=== PATIENT | female | born 1945 | race Caucasian/White ===

== ENCOUNTER 2020-01-13 13:03 | Outpatient (CLI) | payer MEDICARE, OTHER ==
[2020-01-14 14:21] LABS: SARS-CoV-2 MS2 Positive; SARS-CoV-2 N Gene Negative; SARS-CoV-2 S Gene Negative; SARS-CoV-2 by NAA Not Detected (NotDetected); SARS-CoV-2 orf1ab Negative
== END 2020-01-13 13:04 | disposition home or self-care (01) ==
LOC: LABBT 13:03
PROVIDERS: ATTEND Internal Medicine Cardiovascular Disease
DX: Z01.812 Encounter for preprocedural laboratory examination (principal); Z11.59 Encounter for screening for other viral diseases; I48.91 Unspecified atrial fibrillation
CPT/HCPCS: 87635; U0003

== ENCOUNTER 2021-03-09 11:58 | Outpatient (CLI) | payer MEDICARE | END 2021-03-09 11:59 | disposition home or self-care (01) | LOC: BICRAD 11:58 | PROVIDERS: ATTEND Specialist | DX: R10.9 Unspecified abdominal pain (principal); Z87.19 Personal history of other diseases of the digestive system | CPT/HCPCS: 36415; 74019; 80048; 85025 ==

== ENCOUNTER 2021-04-01 08:36 | Outpatient (CLI) | payer MEDICARE | END 2021-04-01 08:37 | disposition home or self-care (01) | LOC: BICCT 08:36 | PROVIDERS: ATTEND Specialist | DX: R10.9 Unspecified abdominal pain (principal); K52.9 Noninfective gastroenteritis and colitis, unspecified; K76.0 Fatty (change of) liver, not elsewhere classified; N26.1 Atrophy of kidney (terminal); S30.1XXA Contusion of abdominal wall, initial encounter | CPT/HCPCS: 74177 ==

== ENCOUNTER 2021-04-01 10:46 | Inpatient (IN) | payer MEDICARE ==
[2021-04-01] MEDS ORDERED: Ondansetron PF 4 MG/2 ML Vial IVP PRN (12:32)
[2021-04-01] MEDS ORDERED: Lactated Ringer's 1,000 ML IV SCH ×2 (12:45→13:00)
[2021-04-01] MEDS ORDERED: Gabapentin 300 MG CAP PO SCH (12:45)
[2021-04-01 13:51] VITALS: BMI 24.3
[2021-04-01 14:54] LABS: #Lymphocytes 1.1 thou/uL (1.20-3.40); #Monocytes 0.6 thou/uL (0.11-0.59); #Neutrophils 4.1 thou/uL (1.40-6.50); %Basophils 0.5 % (0.0-1.0); %Eosinophils 0.6 % (0.0-10.0); %Lymphocytes 18.6 % (21.0-51.0); %Monocytes 10.1 % (0.0-10.0); %Neutrophils 70.3 % (42.0-75.0); Hemoglobin 12.1 g/dL (12.0-16.0); Mean Corpuscular HGB CONC 34.3 g/dL (32.0-36.0); Mean Corpuscular Hemoglobin 34.5 pg (27.0-31.0); Mean Platelet Volume 6.7 fL (7.4-10.4); Platelet Count 348 thou/uL (130-400); RBC Distribution Width 15.6 % (11.5-14.5); Red Blood Cell (RBC) Count 3.49 mill/uL (4.20-5.40); White Blood Cell (WBC) Count 5.8 thou/uL (4.8-10.8)
[2021-04-01 16:35] LABS: ALT (SGPT) 8 U/L (8-55); AST (SGOT) 28 U/L (5-34); Albumin 2.8 g/dL (3.4-4.8); Alkaline Phosphatase 66 U/L (40-110); Anion Gap 20 mmol/L (10-20); BUN (Urea Nitrogen) 27 mg/dL (9.8-20.1); Bilirubin, Total 0.4 mg/dL (0.2-1.2); Calc. Creatinine Clearance 29 mL/min (70-130); Carbon Dioxide 22 mmol/L (23-31); Chloride 100 mmol/L (98-107); Globulin 3.3 g/dL (2.4-3.5); Glucose 95 mg/dL (83-110); Potassium 4.9 mmol/L (3.5-5.1); Protein, Total 6.1 g/dL (5.8-8.1); Sodium 137 mmol/L (136-145)
[2021-04-01 17:39] LABS: SARS-CoV-2 PCR by NAA Not Detected (NotDetected)
[2021-04-01] MEDS: Sodium Chloride 0.45% 1,000 ML IV SCH (21:27)
[2021-04-01] MEDS: Vancomycin HCl 25 MG/ML Oral PO SCH (21:28)
[2021-04-01] MEDS: Dronedarone HCl 400 MG TAB PO SCH (21:28)
[2021-04-01] MEDS: Acetaminophen 500 MG TAB PO SCH ×2 (21:28→21:31)
[2021-04-02] MEDS: Vancomycin HCl 25 MG/ML Oral PO SCH ×3 (03:40→14:38)
[2021-04-02] MEDS: Acetaminophen 500 MG TAB PO SCH ×2 (06:07→13:40)
[2021-04-02 08:20] LABS: Anion Gap 16 mmol/L (10-20); BUN (Urea Nitrogen) 20 mg/dL (9.8-20.1); Calc. Creatinine Clearance 38 mL/min (70-130); Calcium 6.9 mg/dL (7.8-10.44); Carbon Dioxide 20 mmol/L (23-31); Chloride 102 mmol/L (98-107); Glucose 90 mg/dL (83-110); Sodium 135 mmol/L (136-145)
[2021-04-02 08:27] LABS: Potassium 2.6 mmol/L (3.5-5.1)
[2021-04-02] MEDS ORDERED: Magnesium Oxide 250 MG TAB PO SCH (09:00)
[2021-04-02] MEDS ORDERED: Exemestane 25 MG TAB PO SCH (09:00)
[2021-04-02] MEDS ORDERED: Gabapentin 300 MG CAP PO SCH ×2 (09:00)
[2021-04-02] MEDS ORDERED: Cholestyramine/Aspartame 4 gm Packet PO SCH (09:00)
[2021-04-02] MEDS: Dronedarone HCl 400 MG TAB PO SCH (09:35)
[2021-04-02] MEDS: Potassium Chloride 40 MEQ in Sodium Chloride 0.9% 250 ML 250 ML IVPB SCH ×2 (10:13→16:24)
[2021-04-02] MEDS: Sodium Chloride 0.45% 1,000 ML IV SCH ×2 (10:14→16:34)
[2021-04-02] MEDS ORDERED: Ondansetron ODT 8 MG TAB SL PRN (10:22)
[2021-04-02 11:57] VITALS: TEMP 97.5
[2021-04-02] MEDS: Potassium Chloride 20 MEQ TAB PO SCH ×2 (14:38→16:28)
[2021-04-02] MEDS ORDERED: Potassium Chloride 20 MEQ TAB PO SCH (16:00)
[2021-04-02 16:25] VITALS: BP 118/75
[2021-04-02] MEDS ORDERED: Apixaban 5 MG TAB PO SCH (21:00)
[2021-04-03] MEDS ORDERED: Potassium Chloride 20 MEQ TAB PO SCH (08:00)
== END 2021-04-02 17:15 | disposition home or self-care (01) | DRG 372 ==
LOC: SJJU 11:28
PROVIDERS: ADMIT Specialist; ATTEND Specialist
DX: A04.72 Enterocolitis due to Clostridium difficile, not specified as recurrent (principal); N17.9 Acute kidney failure, unspecified; E86.0 Dehydration; I48.91 Unspecified atrial fibrillation; M19.90 Unspecified osteoarthritis, unspecified site; H40.9 Unspecified glaucoma; E87.5 Hyperkalemia; D64.9 Anemia, unspecified; Z20.822 Contact with and (suspected) exposure to COVID-19; N18.30 Chronic kidney disease, stage 3 unspecified; I12.9 Hypertensive chronic kidney disease with stage 1 through stage 4 chronic kidney disease, or unspecified chronic kidney disease; Z79.01 Long term (current) use of anticoagulants; Z90.49 Acquired absence of other specified parts of digestive tract; Z85.3 Personal history of malignant neoplasm of breast; Z85.038 Personal history of other malignant neoplasm of large intestine; Z92.3 Personal history of irradiation; Z92.21 Personal history of antineoplastic chemotherapy; Z90.710 Acquired absence of both cervix and uterus; Z98.890 Other specified postprocedural states
CPT/HCPCS: 36415; 71046; 74177; 80048; 80053; 82533; 83630; 84443; 85025; 87045; 87046; 87077; 87324; 87427; 87449; 87493; J2405; J3480; J7050; J7120; Q9967; U0003; U0005

== ENCOUNTER 2021-04-12 13:02 | Inpatient (IN) | payer MEDICARE ==
[2021-04-12 13:41] LABS: #Basophils 0.1 thou/uL (0.0-0.2); #Eosinphils 0.1 thou/uL (0.0-0.7); #Lymphocytes 1.7 thou/uL (1.20-3.40); #Monocytes 0.6 thou/uL (0.11-0.59); #Neutrophils 5.1 thou/uL (1.40-6.50); %Lymphocytes 22.5 % (21.0-51.0); %Monocytes 7.5 % (0.0-10.0); Mean Corpuscular HGB CONC 32.9 g/dL (32.0-36.0); Mean Corpuscular Hemoglobin 32.8 pg (27.0-31.0); Mean Corpuscular Volume 99.8 fL (78.0-98.0); Mean Platelet Volume 6.4 fL (7.4-10.4); Platelet Count 592 thou/uL (130-400); RBC Distribution Width 15.7 % (11.5-14.5); Red Blood Cell (RBC) Count 4.27 mill/uL (4.20-5.40); White Blood Cell (WBC) Count 7.5 thou/uL (4.8-10.8)
[2021-04-12 14:07] LABS: ALT (SGPT) 11 U/L (8-55); AST (SGOT) 16 U/L (5-34); Albumin 3.4 g/dL (3.4-4.8); Alkaline Phosphatase 81 U/L (40-110); Anion Gap 18 mmol/L (10-20); BUN (Urea Nitrogen) 25 mg/dL (9.8-20.1); Bilirubin, Total 0.5 mg/dL (0.2-1.2); Calc. Creatinine Clearance 0 mL/min (70-130); Calcium 7.4 mg/dL (7.8-10.44); Carbon Dioxide 22 mmol/L (23-31); Chloride 101 mmol/L (98-107); Globulin 3.7 g/dL (2.4-3.5); Glucose 103 mg/dL (83-110); Lipase 25 U/L (8-78); Protein, Total 7.1 g/dL (5.8-8.1); Sodium 138 mmol/L (136-145)
[2021-04-12 14:18] LABS: Potassium 2.6 mmol/L (3.5-5.1)
[2021-04-12] MEDS ORDERED: Magnesium 2 GM/50 ML BAG (IN WATER) ONE ×3 (14:51→22:18)
[2021-04-12 15:05] LABS: Magnesium 0.7 mg/dL (1.6-2.6)
[2021-04-12] MEDS ORDERED: Potassium Chloride 40 MEQ in Sodium Chloride 0.9% 250 ML 250 ML IVPB SCH (15:30)
[2021-04-12] MEDS ORDERED: Potassium Chloride 20 MEQ TAB ONE ×2 (15:40→22:41)
[2021-04-12] MEDS ORDERED: Electrolyte Replacement Protocol 1 EACH FS SCH (16:00)
[2021-04-12] MEDS ORDERED: Magnesium Sulfate 4 GM in Sodium Chloride 0.9% 250 ML 250 ML IVPB SCH ×2 (16:15→22:45)
[2021-04-12 16:28] LABS: Phosphorus 3.6 mg/dL (2.3-4.7)
[2021-04-12 16:38] LABS: Lactic Acid 2.5 mmol/L (0.5-2.2)
[2021-04-12] MEDS ORDERED: NS 0.9% w/ 20 MEQ KCL 1,000 ML ONE (17:46)
[2021-04-12] MEDS ORDERED: Calcium Gluconate 4.6 MEQ in Sodium Chloride 0.9% 100 ML IVPB SCH (20:00)
[2021-04-12 21:54] LABS: Potassium 3.3 mmol/L (3.5-5.1)
[2021-04-12 22:00] LABS: Magnesium 0.9 mg/dL (1.6-2.6)
[2021-04-12] MEDS ORDERED: Potassium Chloride 20 MEQ TAB PO SCH (22:30)
[2021-04-12] MEDS ORDERED: Ondansetron PF 4 MG/2 ML Vial ONE (22:41)
[2021-04-13] MEDS: Ondansetron PF 4 MG/2 ML Vial IVP PRN ×2 (01:58→05:14)
[2021-04-13 02:31] VITALS: BMI 24.0
[2021-04-13] MEDS: Fidaxomicin 200 MG TAB PO SCH ×3 (03:31→21:02)
[2021-04-13] MEDS: Apixaban 5 MG TAB PO SCH ×3 (03:33→21:02)
[2021-04-13] MEDS: Dronedarone HCl 400 MG TAB PO SCH ×3 (03:35→21:02)
[2021-04-13] MEDS: Cyanocobalamin (Vitamin B-12) 1,000 MCG TAB PO SCH ×2 (03:53→21:02)
[2021-04-13] MEDS: Folic Acid 1 MG TAB PO SCH ×2 (03:53→21:02)
[2021-04-13 04:23] LABS: SARS-CoV-2 NAA Rapid Test Not Detected (NotDetected)
[2021-04-13 05:05] LABS: Chloride 109 mmol/L (98-107); Potassium 3.7 mmol/L (3.5-5.1); Sodium 138 mmol/L (136-145)
[2021-04-13 05:06] LABS: Calcium 7.4 mg/dL (7.8-10.44); Glucose 99 mg/dL (83-110)
[2021-04-13 05:08] LABS: Anion Gap 17 mmol/L (10-20); Carbon Dioxide 16 mmol/L (23-31)
[2021-04-13 05:10] LABS: Calc. Creatinine Clearance 30 mL/min (70-130)
[2021-04-13 05:11] LABS: BUN (Urea Nitrogen) 24 mg/dL (9.8-20.1)
[2021-04-13 05:12] LABS: Magnesium 2.3 mg/dL (1.6-2.6)
[2021-04-13 05:13] LABS: Lactic Acid 1.4 mmol/L (0.5-2.2)
[2021-04-13] MEDS: NS 0.9% w/ 20 MEQ KCL 1,000 ML/1,000 ML BAG IV SCH ×3 (05:13→13:36)
[2021-04-13] MEDS: metroNIDAZOLE 500 MG in Premix Bag 1 BAG IVPB SCH ×3 (05:14→13:37)
[2021-04-13] MEDS: Vancomycin HCl 25 MG/ML Oral PO SCH ×4 (05:14→17:57)
[2021-04-13 05:21] LABS: Phosphorus 2.8 mg/dL (2.3-4.7)
[2021-04-13] MEDS: Furosemide 20 MG TAB PO SCH (08:52)
[2021-04-13] MEDS: Magnesium Oxide 400 MG TAB PO SCH ×3 (08:52→21:02)
[2021-04-13] MEDS: Gabapentin 300 MG CAP PO SCH (08:53)
[2021-04-13] MEDS: Multivit, Therapeutic 1 TAB PO SCH (08:53)
[2021-04-13] MEDS ORDERED: Acetaminophen 325 MG TAB PO PRN (23:36)
[2021-04-13] MEDS ORDERED: HYDROcodone/Acetaminophen 5/325 mg Tablet PO PRN (23:37)
[2021-04-14] MEDS: NS 0.9% w/ 20 MEQ KCL 1,000 ML/1,000 ML BAG IV SCH ×3 (03:26→09:49)
[2021-04-14] MEDS: metroNIDAZOLE 500 MG in Premix Bag 1 BAG IVPB SCH (03:27)
[2021-04-14] MEDS: Dronedarone HCl 400 MG TAB PO SCH ×2 (08:30→20:48)
[2021-04-14] MEDS: Gabapentin 300 MG CAP PO SCH (08:30)
[2021-04-14] MEDS: Multivit, Therapeutic 1 TAB PO SCH (08:30)
[2021-04-14] MEDS: Fidaxomicin 200 MG TAB PO SCH ×2 (08:31→20:50)
[2021-04-14] MEDS: Apixaban 5 MG TAB PO SCH ×2 (08:31→20:46)
[2021-04-14] MEDS: Magnesium Oxide 400 MG TAB PO SCH ×3 (08:31→20:48)
[2021-04-14] MEDS: Furosemide 20 MG TAB PO SCH (08:31)
[2021-04-14] MEDS ORDERED: Calcium Carbonate 500 MG ChewTAB PO PRN (09:05)
[2021-04-14] MEDS ORDERED: Sodium Chloride 0.65% Nasal 44 ML BOT EA NARE PRN (09:05)
[2021-04-14] MEDS ORDERED: Artificial Tear Sol 15 ML BOT EA EYE PRN (09:05)
[2021-04-14] MEDS ORDERED: GUAIFENESIN SF SOLN 200 MG/10 ML UDCUP PO PRN (09:05)
[2021-04-14] MEDS ORDERED: Hydrocerin (Eucerin) Cream 120 gm Jar TOP PRN (09:05)
[2021-04-14] MEDS ORDERED: Loratadine 10 MG TAB PO PRN (09:05)
[2021-04-14] MEDS ORDERED: Cepastat Lozenges 1 LOZ PO PRN (09:05)
[2021-04-14] MEDS ORDERED: cloNIDine 0.1 MG TAB PO PRN (09:05)
[2021-04-14] MEDS: Saccharomyces boulardii 250 MG CAP PO SCH (20:47)
[2021-04-14] MEDS: Folic Acid 1 MG TAB PO SCH (20:47)
[2021-04-14] MEDS: Cyanocobalamin (Vitamin B-12) 1,000 MCG TAB PO SCH (20:47)
[2021-04-14] MEDS: Diphenoxylate HCl/Atropine Tablet PO PRN (22:13)
[2021-04-14] MEDS: Zolpidem Tartrate 5 MG TAB PO PRN (22:21)
[2021-04-15 06:34] LABS: #Eosinphils 0.2 thou/uL (0.0-0.7); #Lymphocytes 1.8 thou/uL (1.20-3.40); #Monocytes 0.5 thou/uL (0.11-0.59); #Neutrophils 3.6 thou/uL (1.40-6.50); %Basophils 0.5 % (0.0-1.0); %Eosinophils 2.7 % (0.0-10.0); %Lymphocytes 28.7 % (21.0-51.0); %Monocytes 8.9 % (0.0-10.0); %Neutrophils 59.3 % (42.0-75.0); Hemoglobin 11.1 g/dL (12.0-16.0); Mean Corpuscular HGB CONC 32.3 g/dL (32.0-36.0); Mean Platelet Volume 6.4 fL (7.4-10.4); Platelet Count 397 thou/uL (130-400); RBC Distribution Width 15.5 % (11.5-14.5); Red Blood Cell (RBC) Count 3.36 mill/uL (4.20-5.40); White Blood Cell (WBC) Count 6.1 thou/uL (4.8-10.8)
[2021-04-15 06:58] LABS: ALT (SGPT) 13 U/L (8-55); AST (SGOT) 18 U/L (5-34); Albumin 2.6 g/dL (3.4-4.8); Alkaline Phosphatase 63 U/L (40-110); Anion Gap 10 mmol/L (10-20); BUN (Urea Nitrogen) 12 mg/dL (9.8-20.1); Bilirubin, Total 0.5 mg/dL (0.2-1.2); Calc. Creatinine Clearance 44 mL/min (70-130); Calcium 8.2 mg/dL (7.8-10.44); Carbon Dioxide 23 mmol/L (23-31); Chloride 108 mmol/L (98-107); Globulin 2.2 g/dL (2.4-3.5); Glucose 85 mg/dL (83-110); Magnesium 1.7 mg/dL (1.6-2.6); Phosphorus 2.9 mg/dL (2.3-4.7); Protein, Total 4.8 g/dL (5.8-8.1); Sodium 138 mmol/L (136-145)
[2021-04-15] MEDS ORDERED: Potassium Chloride 20 MEQ TAB PO SCH (07:15)
[2021-04-15] MEDS ORDERED: Magnesium 2 GM/50 ML 2 GM in Premix Bag 1 BAG IVPB SCH (08:00)
[2021-04-15] MEDS: Dronedarone HCl 400 MG TAB PO SCH ×2 (08:56→21:07)
[2021-04-15] MEDS: Fidaxomicin 200 MG TAB PO SCH ×2 (08:57→21:07)
[2021-04-15] MEDS: Exemestane 25 MG TAB PO SCH (08:58)
[2021-04-15] MEDS: Saccharomyces boulardii 250 MG CAP PO SCH ×2 (08:59→21:08)
[2021-04-15] MEDS: Gabapentin 300 MG CAP PO SCH (08:59)
[2021-04-15] MEDS: Magnesium Oxide 400 MG TAB PO SCH ×3 (09:00→21:08)
[2021-04-15] MEDS ORDERED: Allopurinol 100 MG TAB PO SCH (09:00)
[2021-04-15] MEDS: Diphenoxylate HCl/Atropine Tablet PO PRN (09:00)
[2021-04-15] MEDS ORDERED: Non-Formulary Item 1 EACH (Cholecalciferol (Vitamin D3) [Vitamin D3] 50 MCG Capsule) PO SCH (09:00)
[2021-04-15] MEDS: Multivit, Therapeutic 1 TAB PO SCH (09:00)
[2021-04-15] MEDS ORDERED: Exemestane 25 MG TAB PO SCH (09:00)
[2021-04-15] MEDS: Cholecalciferol 1,000 UNITS (25 MCG) TAB PO SCH (09:00)
[2021-04-15] MEDS: Apixaban 5 MG TAB PO SCH ×2 (09:01→21:06)
[2021-04-15] MEDS: Allopurinol 100 MG TAB PO SCH (09:01)
[2021-04-15] MEDS: Furosemide 20 MG TAB PO SCH (09:02)
[2021-04-15] MEDS: Cholestyramine/Aspartame 4 gm Packet PO SCH ×2 (11:00→22:21)
[2021-04-15] MEDS ORDERED: Ondansetron ODT 4 MG TAB PO PRN (12:11)
[2021-04-15] MEDS: Cyanocobalamin (Vitamin B-12) 1,000 MCG TAB PO SCH (21:07)
[2021-04-15] MEDS: Folic Acid 1 MG TAB PO SCH (21:08)
[2021-04-15] MEDS: Zolpidem Tartrate 5 MG TAB PO PRN (21:10)
[2021-04-16 05:08] VITALS: BP 112/72
[2021-04-16 06:30] LABS: Anion Gap 10 mmol/L (10-20); BUN (Urea Nitrogen) 12 mg/dL (9.8-20.1); Calc. Creatinine Clearance 42 mL/min (70-130); Calcium 8.4 mg/dL (7.8-10.44); Carbon Dioxide 21 mmol/L (23-31); Chloride 109 mmol/L (98-107); Glucose 85 mg/dL (83-110); Potassium 3.4 mmol/L (3.5-5.1); Sodium 137 mmol/L (136-145)
[2021-04-16] MEDS ORDERED: Potassium Chloride 20 MEQ TAB PO SCH (07:00)
[2021-04-16] MEDS ORDERED: FLU VACC QS2021-22(65YR UP)/PF 240 MCG/0.7 ML SYRINGE IM ONE (09:00)
[2021-04-16 09:02] VITALS: TEMP 98.3
[2021-04-16] MEDS: Cholestyramine/Aspartame 4 gm Packet PO SCH (09:02)
[2021-04-16] MEDS: Multivit, Therapeutic 1 TAB PO SCH (09:06)
[2021-04-16] MEDS: Apixaban 5 MG TAB PO SCH (09:06)
[2021-04-16] MEDS: Gabapentin 300 MG CAP PO SCH (09:06)
[2021-04-16] MEDS: Magnesium Oxide 400 MG TAB PO SCH (09:07)
[2021-04-16] MEDS: Exemestane 25 MG TAB PO SCH (09:07)
[2021-04-16] MEDS: Dronedarone HCl 400 MG TAB PO SCH (09:07)
[2021-04-16] MEDS: Cholecalciferol 1,000 UNITS (25 MCG) TAB PO SCH (09:07)
[2021-04-16] MEDS: Allopurinol 100 MG TAB PO SCH (09:07)
[2021-04-16] MEDS: Saccharomyces boulardii 250 MG CAP PO SCH (09:07)
[2021-04-16] MEDS: Fidaxomicin 200 MG TAB PO SCH (09:08)
== END 2021-04-16 11:22 | disposition home or self-care (01) | DRG 372 ==
LOC: ERS 13:02 → ERHOLD 16:35 → 2SE 04-13 04:35 → T4-B 04-14 12:04
PROVIDERS: ADMIT Internal Medicine; ATTEND Internal Medicine
DX: A04.72 Enterocolitis due to Clostridium difficile, not specified as recurrent (principal); N17.9 Acute kidney failure, unspecified; N18.4 Chronic kidney disease, stage 4 (severe); I48.20 Chronic atrial fibrillation, unspecified; E87.6 Hypokalemia; I12.9 Hypertensive chronic kidney disease with stage 1 through stage 4 chronic kidney disease, or unspecified chronic kidney disease; E83.42 Hypomagnesemia; M19.90 Unspecified osteoarthritis, unspecified site; E83.51 Hypocalcemia; I34.0 Nonrheumatic mitral (valve) insufficiency; Z20.822 Contact with and (suspected) exposure to COVID-19; Z85.038 Personal history of other malignant neoplasm of large intestine; Z90.49 Acquired absence of other specified parts of digestive tract; Z79.01 Long term (current) use of anticoagulants; Z85.3 Personal history of malignant neoplasm of breast; Z90.710 Acquired absence of both cervix and uterus; Z98.890 Other specified postprocedural states
CPT/HCPCS: 36415; 74019; 74176; 80048; 80053; 83605; 83630; 83690; 83735; 84100; 85025; 87324; 87449; 90471; 90662; 93005; 94760; 96365; 96366; 96367; G0008; J0610; J2405; J3475; J3480; J3490; J7050; Q0162; U0002

== ENCOUNTER 2021-05-14 13:34 | Emergency (ER) | payer MEDICARE | END 2021-05-14 14:42 | disposition left against medical advice (07) | LOC: ERS 13:34 | DX: Z53.21 Procedure and treatment not carried out due to patient leaving prior to being seen by health care provider (principal) ==

== ENCOUNTER 2021-05-17 15:26 | Inpatient (IN) | payer MEDICARE ==
[2021-05-17] MEDS ORDERED: Sodium Chloride 0.9% 1,000 ML IV SCH (16:07)
[2021-05-17 16:43] LABS: #Eosinphils 0.2 thou/uL (0.0-0.7); #Lymphocytes 1.6 thou/uL (1.20-3.40); #Monocytes 0.5 thou/uL (0.11-0.59); #Neutrophils 4.4 thou/uL (1.40-6.50); %Basophils 0.6 % (0.0-1.0); %Eosinophils 2.3 % (0.0-10.0); %Lymphocytes 24.2 % (21.0-51.0); %Monocytes 7.1 % (0.0-10.0); %Neutrophils 65.8 % (42.0-75.0); Hemoglobin 13.3 g/dL (12.0-16.0); Mean Corpuscular HGB CONC 33.7 g/dL (32.0-36.0); Mean Platelet Volume 6.4 fL (7.4-10.4); Platelet Count 488 thou/uL (130-400); RBC Distribution Width 14.8 % (11.5-14.5); Red Blood Cell (RBC) Count 3.91 mill/uL (4.20-5.40); White Blood Cell (WBC) Count 6.7 thou/uL (4.8-10.8)
[2021-05-17 16:58] LABS: Phosphorus 2.7 mg/dL (2.3-4.7)
[2021-05-17 17:02] LABS: ALT (SGPT) 10 U/L (8-55); AST (SGOT) 15 U/L (5-34); Albumin 3.5 g/dL (3.4-4.8); Alkaline Phosphatase 85 U/L (40-110); Anion Gap 16 mmol/L (10-20); BUN (Urea Nitrogen) 27 mg/dL (9.8-20.1); Bilirubin, Total 0.4 mg/dL (0.2-1.2); Calc. Creatinine Clearance 0 mL/min (70-130); Calcium 8.1 mg/dL (7.8-10.44); Carbon Dioxide 25 mmol/L (23-31); Chloride 101 mmol/L (98-107); Glucose 99 mg/dL (83-110); Lipase 36 U/L (8-78); Magnesium 1.1 mg/dL (1.6-2.6); Protein, Total 6.5 g/dL (5.8-8.1); Sodium 139 mmol/L (136-145)
[2021-05-17 17:08] LABS: Potassium 2.9 mmol/L (3.5-5.1)
[2021-05-17] MEDS ORDERED: Potassium Chloride 20 MEQ/100 ML PREMIX BAG ONE (17:18)
[2021-05-17] MEDS ORDERED: Magnesium 2 GM/50 ML BAG (IN WATER) ONE (17:18)
[2021-05-17] MEDS ORDERED: Magnesium 2 GM/50 ML 2 GM in Premix Bag 1 BAG IVPB SCH (17:30)
[2021-05-17] MEDS ORDERED: NS 0.9% w/ 20 MEQ KCL 1,000 ML IV SCH (17:30)
[2021-05-17] MEDS ORDERED: Potassium Chloride 20 MEQ TAB PO SCH (17:45)
[2021-05-17] MEDS ORDERED: NS 0.9% w/ 20 MEQ KCL 0 ML ONE (17:57)
[2021-05-17] MEDS ORDERED: Potassium Chloride 20 MEQ TAB ONE (17:57)
[2021-05-17] MEDS ORDERED: Acetaminophen 650 MG Suppository PR PRN (19:17)
[2021-05-17] MEDS ORDERED: Ondansetron ODT 4 MG TAB PO PRN (19:17)
[2021-05-17] MEDS ORDERED: Ondansetron PF 4 MG/2 ML Vial IVP PRN (19:17)
[2021-05-17] MEDS: Saccharomyces boulardii 250 MG CAP PO SCH (21:59)
[2021-05-17] MEDS: Famotidine 20 MG TAB PO SCH (21:59)
[2021-05-17] MEDS: Folic Acid 1 MG TAB PO SCH (21:59)
[2021-05-17] MEDS: Apixaban 5 MG TAB PO SCH (21:59)
[2021-05-17] MEDS: Cholestyramine/Aspartame 4 gm Packet PO SCH (21:59)
[2021-05-17] MEDS: Dronedarone HCl 400 MG TAB PO SCH (21:59)
[2021-05-17] MEDS: Lactated Ringer's 1,000 ML IV SCH (22:00)
[2021-05-17] MEDS: Cyanocobalamin (Vitamin B-12) 1,000 MCG TAB PO SCH (22:05)
[2021-05-18 01:13] LABS: Anion Gap 12 mmol/L (10-20); BUN (Urea Nitrogen) 21 mg/dL (9.8-20.1); Calc. Creatinine Clearance 35 mL/min (70-130); Calcium 7.5 mg/dL (7.8-10.44); Carbon Dioxide 21 mmol/L (23-31); Chloride 109 mmol/L (98-107); Glucose 105 mg/dL (83-110); Magnesium 1.6 mg/dL (1.6-2.6); Sodium 139 mmol/L (136-145)
[2021-05-18 05:16] LABS: Anion Gap 13 mmol/L (10-20); BUN (Urea Nitrogen) 18 mg/dL (9.8-20.1); Calc. Creatinine Clearance 39 mL/min (70-130); Calcium 7.8 mg/dL (7.8-10.44); Carbon Dioxide 17 mmol/L (23-31); Chloride 111 mmol/L (98-107); Glucose 95 mg/dL (83-110); Sodium 138 mmol/L (136-145)
[2021-05-18 05:29] LABS: Potassium 2.9 mmol/L (3.5-5.1)
[2021-05-18] MEDS: Potassium Chloride 20 MEQ in Premix Bag 1 BAG IVPB SCH ×2 (06:27→09:35)
[2021-05-18] MEDS ORDERED: Magnesium Sulfate 2 GM in Sodium Chloride 0.9% 100 ML IVPB SCH (06:30)
[2021-05-18] MEDS: Acetaminophen 325 MG TAB PO PRN ×2 (06:55→19:17)
[2021-05-18] MEDS ORDERED: Magnesium 2 GM/50 ML 2 GM in Premix Bag 1 BAG IVPB SCH (07:00)
[2021-05-18 07:03] LABS: #Basophils 0.1 thou/uL (0.0-0.2); #Eosinphils 0.2 thou/uL (0.0-0.7); #Lymphocytes 1.4 thou/uL (1.20-3.40); #Monocytes 0.5 thou/uL (0.11-0.59); #Neutrophils 3.8 thou/uL (1.40-6.50); %Eosinophils 3.5 % (0.0-10.0); %Lymphocytes 24.1 % (21.0-51.0); %Monocytes 8.9 % (0.0-10.0); %Neutrophils 62.5 % (42.0-75.0); Hemoglobin 11.5 g/dL (12.0-16.0); Mean Corpuscular HGB CONC 32.7 g/dL (32.0-36.0); Mean Corpuscular Hemoglobin 33.4 pg (27.0-31.0); Mean Platelet Volume 6.2 fL (7.4-10.4); Platelet Count 433 thou/uL (130-400); Red Blood Cell (RBC) Count 3.44 mill/uL (4.20-5.40)
[2021-05-18] MEDS ORDERED: Potassium Chloride 20 MEQ TAB PO SCH ×2 (08:30→15:00)
[2021-05-18] MEDS: Dronedarone HCl 400 MG TAB PO SCH ×2 (09:32→21:33)
[2021-05-18] MEDS: Fidaxomicin 200 MG TAB PO SCH ×2 (09:32→22:31)
[2021-05-18] MEDS: Saccharomyces boulardii 250 MG CAP PO SCH ×2 (09:32→21:33)
[2021-05-18] MEDS: Cholecalciferol 1,000 UNITS (25 MCG) TAB PO SCH (09:32)
[2021-05-18] MEDS: Exemestane 25 MG TAB PO SCH (09:33)
[2021-05-18] MEDS: Cholestyramine/Aspartame 4 gm Packet PO SCH ×2 (09:33→21:35)
[2021-05-18] MEDS: Gabapentin 300 MG CAP PO SCH (09:33)
[2021-05-18] MEDS: Lactated Ringer's 1,000 ML IV SCH (09:35)
[2021-05-18 11:08] LABS: SARS-CoV-2 PCR by NAA Not Detected (NotDetected)
[2021-05-18 13:03] LABS: Anion Gap 13 mmol/L (10-20); BUN (Urea Nitrogen) 15 mg/dL (9.8-20.1); Calc. Creatinine Clearance 42 mL/min (70-130); Carbon Dioxide 18 mmol/L (23-31); Chloride 108 mmol/L (98-107); Glucose 125 mg/dL (83-110); Potassium 3.2 mmol/L (3.5-5.1); Sodium 136 mmol/L (136-145)
[2021-05-18] MEDS ORDERED: Azithromycin 200 MG/5 ML Oral Suspension PO SCH (18:30)
[2021-05-18] MEDS: Apixaban 5 MG TAB PO SCH (21:33)
[2021-05-18] MEDS: Famotidine 20 MG TAB PO SCH (21:33)
[2021-05-18] MEDS: Folic Acid 1 MG TAB PO SCH (21:33)
[2021-05-18] MEDS: Cyanocobalamin (Vitamin B-12) 1,000 MCG TAB PO SCH (21:33)
[2021-05-19 05:16] LABS: #Eosinphils 0.2 thou/uL (0.0-0.7); #Lymphocytes 1.6 thou/uL (1.20-3.40); #Monocytes 0.4 thou/uL (0.11-0.59); #Neutrophils 3.3 thou/uL (1.40-6.50); %Basophils 0.4 % (0.0-1.0); %Eosinophils 3.5 % (0.0-10.0); %Lymphocytes 29.6 % (21.0-51.0); %Monocytes 7.1 % (0.0-10.0); %Neutrophils 59.4 % (42.0-75.0); Hemoglobin 10.6 g/dL (12.0-16.0); Mean Corpuscular HGB CONC 31.5 g/dL (32.0-36.0); Mean Corpuscular Hemoglobin 32.4 pg (27.0-31.0); Mean Platelet Volume 6.4 fL (7.4-10.4); Platelet Count 403 thou/uL (130-400); Red Blood Cell (RBC) Count 3.26 mill/uL (4.20-5.40); White Blood Cell (WBC) Count 5.5 thou/uL (4.8-10.8)
[2021-05-19 05:45] LABS: Anion Gap 11 mmol/L (10-20); BUN (Urea Nitrogen) 13 mg/dL (9.8-20.1); Calc. Creatinine Clearance 52 mL/min (70-130); Calcium 8.1 mg/dL (7.8-10.44); Carbon Dioxide 19 mmol/L (23-31); Chloride 111 mmol/L (98-107); Glucose 81 mg/dL (83-110); Magnesium 1.7 mg/dL (1.6-2.6); Potassium 3.4 mmol/L (3.5-5.1); Sodium 138 mmol/L (136-145)
[2021-05-19] MEDS: Lactated Ringer's 1,000 ML IV SCH ×2 (07:54→11:29)
[2021-05-19] MEDS: Exemestane 25 MG TAB PO SCH (09:43)
[2021-05-19] MEDS: Dronedarone HCl 400 MG TAB PO SCH ×2 (09:43→20:40)
[2021-05-19] MEDS: Fidaxomicin 200 MG TAB PO SCH ×2 (09:43→20:41)
[2021-05-19] MEDS: Gabapentin 300 MG CAP PO SCH (09:43)
[2021-05-19] MEDS: Cholecalciferol 1,000 UNITS (25 MCG) TAB PO SCH (09:44)
[2021-05-19] MEDS: Cholestyramine/Aspartame 4 gm Packet PO SCH ×2 (09:44→22:42)
[2021-05-19] MEDS: Saccharomyces boulardii 250 MG CAP PO SCH ×2 (09:44→20:41)
[2021-05-19] MEDS ORDERED: Potassium Chloride 20 MEQ TAB PO SCH (11:00)
[2021-05-19] MEDS ORDERED: Fentanyl 100 MCG/2 ML VIAL SLOW IVP SCH (13:30)
[2021-05-19] MEDS ORDERED: Azithromycin 250 MG TAB PO SCH (18:30)
[2021-05-19] MEDS: Cyanocobalamin (Vitamin B-12) 1,000 MCG TAB PO SCH (20:40)
[2021-05-19] MEDS: Famotidine 20 MG TAB PO SCH (20:41)
[2021-05-19] MEDS: Folic Acid 1 MG TAB PO SCH (20:41)
[2021-05-20] MEDS: Lactated Ringer's 1,000 ML IV SCH ×2 (01:38→15:03)
[2021-05-20 04:44] LABS: #Eosinphils 0.2 thou/uL (0.0-0.7); #Lymphocytes 1.8 thou/uL (1.20-3.40); #Monocytes 0.5 thou/uL (0.11-0.59); #Neutrophils 5.1 thou/uL (1.40-6.50); %Basophils 0.2 % (0.0-1.0); %Eosinophils 2.7 % (0.0-10.0); %Lymphocytes 23.3 % (21.0-51.0); %Neutrophils 66.8 % (42.0-75.0); Hemoglobin 11.2 g/dL (12.0-16.0); Mean Corpuscular HGB CONC 33.1 g/dL (32.0-36.0); Mean Corpuscular Hemoglobin 33.8 pg (27.0-31.0); Mean Platelet Volume 6.2 fL (7.4-10.4); Platelet Count 412 thou/uL (130-400); RBC Distribution Width 14.9 % (11.5-14.5); White Blood Cell (WBC) Count 7.6 thou/uL (4.8-10.8)
[2021-05-20 05:10] LABS: Anion Gap 11 mmol/L (10-20); BUN (Urea Nitrogen) 9 mg/dL (9.8-20.1); Calc. Creatinine Clearance 61 mL/min (70-130); Calcium 8.2 mg/dL (7.8-10.44); Carbon Dioxide 18 mmol/L (23-31); Chloride 110 mmol/L (98-107); Glucose 84 mg/dL (83-110); Potassium 3.5 mmol/L (3.5-5.1); Sodium 135 mmol/L (136-145)
[2021-05-20] MEDS: Cholecalciferol 1,000 UNITS (25 MCG) TAB PO SCH (08:45)
[2021-05-20] MEDS: Fidaxomicin 200 MG TAB PO SCH ×2 (08:46→21:43)
[2021-05-20] MEDS: Exemestane 25 MG TAB PO SCH (08:46)
[2021-05-20] MEDS: Gabapentin 300 MG CAP PO SCH (08:46)
[2021-05-20] MEDS: Dronedarone HCl 400 MG TAB PO SCH ×2 (08:46→21:42)
[2021-05-20] MEDS: Saccharomyces boulardii 250 MG CAP PO SCH ×2 (08:46→21:43)
[2021-05-20] MEDS: Cholestyramine/Aspartame 4 gm Packet PO SCH ×3 (08:46→21:46)
[2021-05-20] MEDS ORDERED: GoLYTELY 4,000 ml Bottle PO SCH (18:00)
[2021-05-20] MEDS: Cyanocobalamin (Vitamin B-12) 1,000 MCG TAB PO SCH (21:42)
[2021-05-20] MEDS: Famotidine 20 MG TAB PO SCH (21:42)
[2021-05-20] MEDS: Folic Acid 1 MG TAB PO SCH (21:43)
[2021-05-21] MEDS: Lactated Ringer's 1,000 ML IV SCH ×2 (04:20→18:36)
[2021-05-21 04:41] LABS: #Eosinphils 0.2 thou/uL (0.0-0.7); #Lymphocytes 1.5 thou/uL (1.20-3.40); #Monocytes 0.5 thou/uL (0.11-0.59); #Neutrophils 3.7 thou/uL (1.40-6.50); %Basophils 0.4 % (0.0-1.0); %Eosinophils 3.3 % (0.0-10.0); %Monocytes 7.9 % (0.0-10.0); %Neutrophils 62.4 % (42.0-75.0); Hemoglobin 11.3 g/dL (12.0-16.0); Mean Corpuscular HGB CONC 32.5 g/dL (32.0-36.0); Mean Corpuscular Hemoglobin 32.8 pg (27.0-31.0); Mean Platelet Volume 6.2 fL (7.4-10.4); Platelet Count 401 thou/uL (130-400); RBC Distribution Width 15.1 % (11.5-14.5); Red Blood Cell (RBC) Count 3.45 mill/uL (4.20-5.40); White Blood Cell (WBC) Count 5.9 thou/uL (4.8-10.8)
[2021-05-21 04:59] LABS: Anion Gap 11 mmol/L (10-20); BUN (Urea Nitrogen) 7 mg/dL (9.8-20.1); Calc. Creatinine Clearance 59 mL/min (70-130); Calcium 8.2 mg/dL (7.8-10.44); Carbon Dioxide 22 mmol/L (23-31); Chloride 107 mmol/L (98-107); Glucose 75 mg/dL (83-110); Potassium 3.3 mmol/L (3.5-5.1); Sodium 137 mmol/L (136-145)
[2021-05-21] MEDS ORDERED: Potassium Chloride 20 MEQ TAB PO SCH (07:15)
[2021-05-21] MEDS: Fidaxomicin 200 MG TAB PO SCH ×2 (09:31→21:22)
[2021-05-21] MEDS: Gabapentin 300 MG CAP PO SCH (09:31)
[2021-05-21] MEDS: Exemestane 25 MG TAB PO SCH (09:31)
[2021-05-21] MEDS: Dronedarone HCl 400 MG TAB PO SCH ×2 (09:33→21:18)
[2021-05-21] MEDS: Saccharomyces boulardii 250 MG CAP PO SCH ×2 (09:33→21:20)
[2021-05-21] MEDS: Cholecalciferol 1,000 UNITS (25 MCG) TAB PO SCH (09:33)
[2021-05-21] MEDS: Cholestyramine/Aspartame 4 gm Packet PO SCH ×2 (09:34→21:18)
[2021-05-21 13:32] VITALS: BMI 25.2
[2021-05-21] MEDS: Cyanocobalamin (Vitamin B-12) 1,000 MCG TAB PO SCH (21:18)
[2021-05-21] MEDS: Famotidine 20 MG TAB PO SCH (21:19)
[2021-05-21] MEDS: Folic Acid 1 MG TAB PO SCH (21:20)
[2021-05-22 04:44] LABS: #Basophils 0.1 thou/uL (0.0-0.2); #Eosinphils 0.2 thou/uL (0.0-0.7); #Lymphocytes 1.6 thou/uL (1.20-3.40); #Monocytes 0.5 thou/uL (0.11-0.59); #Neutrophils 2.9 thou/uL (1.40-6.50); %Basophils 1.3 % (0.0-1.0); %Eosinophils 3.9 % (0.0-10.0); %Lymphocytes 29.8 % (21.0-51.0); %Monocytes 9.1 % (0.0-10.0); %Neutrophils 55.9 % (42.0-75.0); Hemoglobin 11.1 g/dL (12.0-16.0); Mean Corpuscular Hemoglobin 34.5 pg (27.0-31.0); Mean Platelet Volume 6.2 fL (7.4-10.4); Platelet Count 409 thou/uL (130-400); RBC Distribution Width 15.1 % (11.5-14.5); Red Blood Cell (RBC) Count 3.22 mill/uL (4.20-5.40); White Blood Cell (WBC) Count 5.2 thou/uL (4.8-10.8)
[2021-05-22 05:09] LABS: Anion Gap 12 mmol/L (10-20); BUN (Urea Nitrogen) 5 mg/dL (9.8-20.1); Calc. Creatinine Clearance 61 mL/min (70-130); Calcium 8.3 mg/dL (7.8-10.44); Carbon Dioxide 22 mmol/L (23-31); Chloride 106 mmol/L (98-107); Glucose 70 mg/dL (83-110); Potassium 3.4 mmol/L (3.5-5.1); Sodium 137 mmol/L (136-145)
[2021-05-22] MEDS: Lactated Ringer's 1,000 ML IV SCH (05:59)
[2021-05-22 06:28] LABS: Magnesium 1.2 mg/dL (1.6-2.6)
[2021-05-22] MEDS ORDERED: Magnesium 2 GM/50 ML 2 GM in Premix Bag 1 BAG IVPB SCH (07:30)
[2021-05-22] MEDS: Cholestyramine/Aspartame 4 gm Packet PO SCH ×2 (11:47→16:46)
[2021-05-22] MEDS: Cholecalciferol 1,000 UNITS (25 MCG) TAB PO SCH (11:47)
[2021-05-22] MEDS: Dronedarone HCl 400 MG TAB PO SCH ×2 (11:48→20:48)
[2021-05-22] MEDS: Exemestane 25 MG TAB PO SCH (11:48)
[2021-05-22] MEDS: Gabapentin 300 MG CAP PO SCH (11:48)
[2021-05-22] MEDS: Fidaxomicin 200 MG TAB PO SCH (11:48)
[2021-05-22] MEDS: Saccharomyces boulardii 250 MG CAP PO SCH ×2 (11:48→20:49)
[2021-05-22] MEDS ORDERED: PROPOFOL 200 MG/20 ML VIAL ONE (13:40)
[2021-05-22] MEDS: Cyanocobalamin (Vitamin B-12) 1,000 MCG TAB PO SCH (20:47)
[2021-05-22] MEDS: Famotidine 20 MG TAB PO SCH (20:48)
[2021-05-22] MEDS: Folic Acid 1 MG TAB PO SCH (20:49)
[2021-05-22] MEDS: Acetaminophen 325 MG TAB PO PRN (20:50)
[2021-05-22] MEDS ORDERED: Apixaban 5 MG TAB PO SCH (22:30)
[2021-05-23 04:58] LABS: #Eosinphils 0.2 thou/uL (0.0-0.7); #Lymphocytes 1.6 thou/uL (1.20-3.40); #Monocytes 0.5 thou/uL (0.11-0.59); #Neutrophils 2.4 thou/uL (1.40-6.50); %Basophils 0.5 % (0.0-1.0); %Eosinophils 3.9 % (0.0-10.0); %Lymphocytes 34.1 % (21.0-51.0); %Monocytes 11.1 % (0.0-10.0); %Neutrophils 50.4 % (42.0-75.0); Hemoglobin 10.7 g/dL (12.0-16.0); Mean Corpuscular Hemoglobin 33.6 pg (27.0-31.0); Mean Platelet Volume 6.1 fL (7.4-10.4); Platelet Count 376 thou/uL (130-400); Red Blood Cell (RBC) Count 3.18 mill/uL (4.20-5.40); White Blood Cell (WBC) Count 4.8 thou/uL (4.8-10.8)
[2021-05-23 05:18] LABS: Anion Gap 11 mmol/L (10-20); BUN (Urea Nitrogen) 6 mg/dL (9.8-20.1); Calc. Creatinine Clearance 61 mL/min (70-130); Carbon Dioxide 22 mmol/L (23-31); Chloride 107 mmol/L (98-107); Glucose 83 mg/dL (83-110); Potassium 3.3 mmol/L (3.5-5.1); Sodium 137 mmol/L (136-145)
[2021-05-23 07:08] LABS: Magnesium 1.6 mg/dL (1.6-2.6)
[2021-05-23] MEDS ORDERED: Magnesium 2 GM/50 ML 2 GM in Premix Bag 1 BAG IVPB SCH (07:30)
[2021-05-23] MEDS ORDERED: Potassium Chloride 20 MEQ TAB PO SCH (07:30)
[2021-05-23 08:15] VITALS: BP 148/72; TEMP 97.6
[2021-05-23] MEDS: Cholecalciferol 1,000 UNITS (25 MCG) TAB PO SCH (09:30)
[2021-05-23] MEDS: Exemestane 25 MG TAB PO SCH (09:30)
[2021-05-23] MEDS: Cholestyramine/Aspartame 4 gm Packet PO SCH (09:30)
[2021-05-23] MEDS: Dronedarone HCl 400 MG TAB PO SCH (09:30)
[2021-05-23] MEDS: Gabapentin 300 MG CAP PO SCH (09:31)
[2021-05-23] MEDS: Saccharomyces boulardii 250 MG CAP PO SCH (09:31)
[2021-05-23] MEDS ORDERED: Apixaban 5 MG TAB PO SCH (21:00)
== END 2021-05-23 10:16 | disposition home or self-care (01) | DRG 392 ==
LOC: ERS 15:26 → 2NO 18:07 → OBSVTOIN 05-19 09:21
PROVIDERS: ADMIT Family Medicine; ATTEND Family Medicine
PROC: 0DBB8ZX Excision of Ileum, Via Natural or Artificial Opening Endoscopic, Diagnostic (ICD-10-PCS; principal; 2021-05-22)
DX: K52.9 Noninfective gastroenteritis and colitis, unspecified (principal); N18.4 Chronic kidney disease, stage 4 (severe); N17.9 Acute kidney failure, unspecified; Z20.822 Contact with and (suspected) exposure to COVID-19; E86.0 Dehydration; I48.91 Unspecified atrial fibrillation; E87.6 Hypokalemia; E83.42 Hypomagnesemia; H40.9 Unspecified glaucoma; D75.89 Other specified diseases of blood and blood-forming organs; Z90.49 Acquired absence of other specified parts of digestive tract; Z79.01 Long term (current) use of anticoagulants; Z79.899 Other long term (current) drug therapy; Z85.3 Personal history of malignant neoplasm of breast; Z85.038 Personal history of other malignant neoplasm of large intestine; Z90.710 Acquired absence of both cervix and uterus
CPT/HCPCS: 36415; 80048; 80053; 82607; 82746; 83690; 83735; 84100; 85025; 87045; 87046; 87081; 87324; 87328; 87329; 87427; 87449; 88305; 93005; 96365; 96367; G0378; J2704; J3475; J3480; J7120; U0003; U0005